=== PATIENT | female | born 1960 | race Caucasian/White ===

== ENCOUNTER 2023-11-21 13:19 | Inpatient (IN) | payer OTHER ==
[~2023-11-21] VITALS: Ht 162.6 cm; Wt 75.0 kg
[2023-11-21 13:32] VITALS: BP 173/86
[2023-11-21] MEDS ORDERED: FAMOTIDINE 50 ML IV ONE (13:45)
[2023-11-21] MEDS ORDERED: MORPHINE Sulfate 2 MG/ML SYR IV ONE ×2 (13:50→16:05)
[2023-11-21] MEDS ORDERED: IOHEXOL 300 MG/ML 100 ML VIAL IV ONE (14:00)
[2023-11-21 14:09] LABS: BASO # 0.1 10*3/uL (0.0-0.1); BASO % 0.3 % (0.0-1.0); EOS # 0.1 10*3/uL (0.0-0.4); EOS % 0.6 % (1.0-4.0); HEMATOCRIT 44.5 % (37.0-47.0); LYMPH # 1.6 10*3/uL (1.3-4.4); LYMPH % 8.9 % (27.0-41.0); MEAN CELL VOLUME 82.6 fl (81.0-99.0); MEAN CORPUSCULAR HGB 26.7 pg (27.0-31.0); MEAN CORPUSCULAR HGB CONC 32.4 g/dl (33.0-37.0); MEAN PLATELET VOLUME 10.2 fl (9.6-12.3); MONO # 1.2 10*3/uL (0.1-1.0); MONO % 6.4 % (3.0-9.0); NEUT % 83.4 % (47.0-73.0); PLATELET COUNT AUTOMATED 313 10*3/uL (130-400); RED BLOOD COUNT 5.39 10*6/uL (4.10-5.10); RED CELL DISTRI WIDTH 14.1 % (0-14.5)
[2023-11-21 14:19] VITALS: BP 119/63
[2023-11-21 14:56] LABS: ALKALINE PHOSPHATASE 116 U/L (46-116); BUN 11 mg/dl (9-23); CHLORIDE 99 mmol/L (98-107); POTASSIUM 2.8 mmol/L (3.4-5.1); SGPT/ALT 40 U/L (5-49); TOTAL PROTEIN 7.2 gm/dL (6.0-8.0)
[2023-11-21 15:06] LABS: LIPASE > 3500 U/L (12-53)
[2023-11-21] MEDS ORDERED: POTASSIUM CHLORIDE 20 MEQ TAB PO ONE (15:15)
[2023-11-21] MEDS ORDERED: MORPHINE Sulfate 2 MG/ML SYR IV PRN (16:35)
[2023-11-21] MEDS ORDERED: Ondansetron Hydrochloride 4 MG/2 ML VIAL IV PRN (16:35)
[2023-11-21] MEDS ORDERED: SODIUM CHLORIDE 0.9% 1,000 ML IV SCH (16:40)
[2023-11-21 17:20] LABS: CHOLESTEROL 230 mg/dL (<200); LDL CHOLESTEROL 140 mg/dL (9-159); TRIGLYCERIDES 78 mg/dl (<150)
[2023-11-21] MEDS ORDERED: POTASSIUM CHLORIDE IN WATER 100 ML IV SCH (18:00)
[2023-11-21] MEDS ORDERED: SODIUM CHLORIDE 0.9% 500 ML IV ONE (18:01)
[2023-11-21 18:11] VITALS: BP 122/77
[2023-11-21] MEDS ORDERED: PROZAC40 M1 PO (18:12)
[2023-11-21] MEDS ORDERED: OMEPRAZOLE40 MG PO (18:12)
[2023-11-21] MEDS ORDERED: LAMICTAL200 MG PO (18:13)
[2023-11-21] MEDS ORDERED: ZESTORETIC 10-1 EACH PO (18:13)
[2023-11-21] MEDS ORDERED: TREMFYA100 MG/11 SQ (18:14)
[2023-11-21] MEDS ORDERED: NORVASC5 MG PO (18:14)
[2023-11-21 19:17] VITALS: BP 138/70
[2023-11-22] VITALS (7 sets, daily range): BP systolic 133–150; BP diastolic 54–78
[2023-11-22 06:44] LABS: BASO % 0.3 % (0.0-1.0); EOS # 0.1 10*3/uL (0.0-0.4); EOS % 0.6 % (1.0-4.0); HEMATOCRIT 44.3 % (37.0-47.0); LYMPH # 0.9 10*3/uL (1.3-4.4); LYMPH % 5.6 % (27.0-41.0); MEAN CELL VOLUME 84.5 fl (81.0-99.0); MEAN CORPUSCULAR HGB 26.9 pg (27.0-31.0); MEAN CORPUSCULAR HGB CONC 31.8 g/dl (33.0-37.0); MEAN PLATELET VOLUME 10.4 fl (9.6-12.3); MONO # 1.1 10*3/uL (0.1-1.0); MONO % 6.8 % (3.0-9.0); NEUT # 13.8 10*3/uL (2.3-7.9); NEUT % 86.4 % (47.0-73.0); PLATELET COUNT AUTOMATED 253 10*3/uL (130-400); RED BLOOD COUNT 5.24 10*6/uL (4.10-5.10); RED CELL DISTRI WIDTH 14.3 % (0-14.5); WHITE BLOOD COUNT 15.9 10*3/uL (4.8-10.8)
[2023-11-22 07:17] LABS: ALKALINE PHOSPHATASE 106 U/L (46-116); BUN 6 mg/dl (9-23); CHLORIDE 100 mmol/L (98-107); FREE T4 1.14 ng/dl (0.89-1.76); SGPT/ALT 51 U/L (5-49); TOTAL PROTEIN 6.8 gm/dL (6.0-8.0)
[2023-11-22 07:18] LABS: POTASSIUM 3.8 mmol/L (3.4-5.1)
[2023-11-22] MEDS ORDERED: Enoxaparin Sodium 40 MG/0.4 ML SYR SC SCH (10:00)
[2023-11-22] MEDS ORDERED: Fluoxetine Hydrochloride 20 MG CAP PO SCH (13:30)
[2023-11-22] MEDS ORDERED: LAMOTRIGINE 100 MG TAB PO SCH (13:30)
[2023-11-22] MEDS ORDERED: amLODIPine besylate 5 MG TAB PO SCH (13:30)
[2023-11-22] MEDS ORDERED: HYDROCHLOROTHIAZIDE 12.5 MG CAP PO SCH (13:30)
[2023-11-22] MEDS ORDERED: LISINOPRIL 10 MG TAB PO SCH (13:30)
[2023-11-22] MEDS ORDERED: SODIUM CHLORIDE 0.9% 1,000 ML IV ONE (13:40)
[2023-11-22 14:35] LABS: LIPASE 1792 U/L (12-53)
[2023-11-23] VITALS: BP 141/70
[2023-11-23] MEDS ORDERED: Ketorolac Tromethamine 30 MG/ML VIAL IV ONE (05:20)
[2023-11-23 05:21] LABS: ALKALINE PHOSPHATASE 207 U/L (46-116); BUN 7 mg/dl (9-23); CHLORIDE 100 mmol/L (98-107); LIPASE 60 U/L (12-53); SGPT/ALT 109 U/L (5-49); TOTAL PROTEIN 6.4 gm/dL (6.0-8.0)
[2023-11-23 06:26] LABS: HEMATOCRIT 41.4 % (37.0-47.0); MEAN CELL VOLUME 85.5 fl (81.0-99.0); MEAN CORPUSCULAR HGB 27.3 pg (27.0-31.0); MEAN CORPUSCULAR HGB CONC 31.9 g/dl (33.0-37.0); MEAN PLATELET VOLUME 11.5 fl (9.6-12.3); PLATELET COUNT AUTOMATED 208 10*3/uL (130-400); RED BLOOD COUNT 4.84 10*6/uL (4.10-5.10); RED CELL DISTRI WIDTH 14.5 % (0-14.5); WHITE BLOOD COUNT 20.2 10*3/uL (4.8-10.8)
[2023-11-23 06:27] LABS: MANUAL DIFF REFLEX YES
[2023-11-23 07:05] LABS: POLYCHROMASIA SLIGHT; TOTAL CELLS COUNTED 100 #CELLS; TOXIC GRANULATION SLIGHT; VACUOLATION OF NEUTROPHILS SLIGHT
[2023-11-23 07:06] LABS: PLATELET SUFFICIENCY NORMAL (NORMAL)
[2023-11-23 08:00] VITALS: BP 136/66
[2023-11-23] MEDS ORDERED: amLODIPine besylate 5 MG TAB PO SCH (10:00)
[2023-11-23] MEDS ORDERED: Fluoxetine Hydrochloride 20 MG CAP PO SCH (10:00)
[2023-11-23] MEDS ORDERED: LAMOTRIGINE 100 MG TAB PO SCH (10:00)
[2023-11-23] MEDS ORDERED: ERGOCALCIFEROL 50,000 IU CAP (1.25 MG) PO SCH (10:00)
[2023-11-23] MEDS ORDERED: Piperacillin Sodium/Tazobact 50 ML IV SCH (10:00)
[2023-11-23] MEDS ORDERED: HYDROCHLOROTHIAZIDE 12.5 MG CAP PO SCH (10:00)
[2023-11-23] MEDS ORDERED: LISINOPRIL 10 MG TAB PO SCH (10:00)
[2023-11-23] MEDS ORDERED: SODIUM CHLORIDE 0.9% 1,000 ML IV ONE (10:45)
[2023-11-23] MEDS ORDERED: POTASSIUM CHLORIDE IN WATER 100 ML IV SCH (11:00)
[2023-11-23] MEDS ORDERED: DEXTROSE 5% SALINE 0.45% 1,000 ML IV SCH (11:45)
[2023-11-23 12:00] VITALS: BP 116/52
[2023-11-23 16:00] VITALS: BP 134/65
[2023-11-23 20:00] VITALS: BP 157/73
[2023-11-23 23:50] LABS: ABG BASE EXCESS 3.3 mmol/L (-2.0-2.0); ARTERIAL BLOOD GAS PH 7.44 (7.35-7.45)
[2023-11-24] VITALS: BP 159/69
[2023-11-24] MEDS ORDERED: Ketorolac Tromethamine 15 MG/ML VIAL IV ONE (01:15)
[2023-11-24] MEDS ORDERED: FUROSEMIDE 20 MG/2 ML VIAL IV ONE (03:25)
[2023-11-24 06:11] LABS: BASO % 0.3 % (0.0-1.0); EOS % 0.4 % (1.0-4.0); HEMATOCRIT 40.1 % (37.0-47.0); LYMPH # 0.5 10*3/uL (1.3-4.4); LYMPH % 4.8 % (27.0-41.0); MEAN CELL VOLUME 83.9 fl (81.0-99.0); MEAN CORPUSCULAR HGB 27.6 pg (27.0-31.0); MEAN CORPUSCULAR HGB CONC 32.9 g/dl (33.0-37.0); MEAN PLATELET VOLUME 11.4 fl (9.6-12.3); MONO % 10.1 % (3.0-9.0); NEUT # 7.9 10*3/uL (2.3-7.9); NEUT % 83.9 % (47.0-73.0); PLATELET COUNT AUTOMATED 193 10*3/uL (130-400); RED BLOOD COUNT 4.78 10*6/uL (4.10-5.10); RED CELL DISTRI WIDTH 14.4 % (0-14.5); WHITE BLOOD COUNT 9.5 10*3/uL (4.8-10.8)
[2023-11-24 07:03] LABS: ALKALINE PHOSPHATASE 261 U/L (46-116); CHLORIDE 94 mmol/L (98-107); LIPASE 61 U/L (12-53); POTASSIUM 2.6 mmol/L (3.4-5.1); SGPT/ALT 109 U/L (5-49); TOTAL PROTEIN 6.8 gm/dL (6.0-8.0)
[2023-11-24 07:05] LABS: BUN < 5 mg/dl (9-23)
[2023-11-24] MEDS ORDERED: POTASSIUM CHLORIDE IN WATER 100 ML IV SCH (07:10)
[2023-11-24 08:00] VITALS: BP 146/67
[2023-11-24] MEDS ORDERED: HEPARIN SODIUM 5,000 UNIT/ML VIAL SC SCH (10:00)
[2023-11-24] MEDS ORDERED: Ketorolac Tromethamine 15 MG/ML VIAL IV PRN (11:10)
[2023-11-24] MEDS ORDERED: Ketorolac Tromethamine 30 MG/ML VIAL IV ONE (11:10)
[2023-11-24 12:00] VITALS: BP 151/75
[2023-11-24] MEDS ORDERED: POTASSIUM CHLORIDE 20 MEQ TAB PO ONE (14:40)
[2023-11-24 16:00] VITALS: BP 156/75
[2023-11-24 20:00] VITALS: BP 151/69
[2023-11-24] MEDS ORDERED: Piperacillin Sodium/Tazobact 50 ML IV SCH (20:00)
[2023-11-25] VITALS: BP 152/86
[2023-11-25 06:13] LABS: BASO % 0.5 % (0.0-1.0); EOS # 0.1 10*3/uL (0.0-0.4); EOS % 1.1 % (1.0-4.0); HEMATOCRIT 41.1 % (37.0-47.0); LYMPH # 0.6 10*3/uL (1.3-4.4); LYMPH % 9.1 % (27.0-41.0); MEAN CELL VOLUME 83.7 fl (81.0-99.0); MEAN CORPUSCULAR HGB 26.7 pg (27.0-31.0); MEAN CORPUSCULAR HGB CONC 31.9 g/dl (33.0-37.0); MEAN PLATELET VOLUME 11.9 fl (9.6-12.3); MONO # 0.9 10*3/uL (0.1-1.0); NEUT % 75.8 % (47.0-73.0); PLATELET COUNT AUTOMATED 198 10*3/uL (130-400); RED BLOOD COUNT 4.91 10*6/uL (4.10-5.10); RED CELL DISTRI WIDTH 14.3 % (0-14.5); WHITE BLOOD COUNT 6.6 10*3/uL (4.8-10.8)
[2023-11-25 06:29] LABS: ALKALINE PHOSPHATASE 304 U/L (46-116); BUN 9 mg/dl (9-23); CHLORIDE 96 mmol/L (98-107); POTASSIUM 3.1 mmol/L (3.4-5.1); SGPT/ALT 125 U/L (5-49); TOTAL PROTEIN 6.8 gm/dL (6.0-8.0)
[2023-11-25] MEDS ORDERED: POTASSIUM CHLORIDE 20 MEQ TAB PO ONE (07:25)
[2023-11-25 08:00] VITALS: BP 151/75
[2023-11-25] MEDS ORDERED: VITAMIN D3125 MCG PO (11:40)
[2023-11-25] MEDS ORDERED: AMOX-CLAV 875-1 EACH PO (11:40)
[2023-11-25] MEDS ORDERED: HYDROCODONE-AC1 EAC1 PO (11:41)
[2023-11-25 12:00] VITALS: BP 129/59
== END 2023-11-25 13:37 | disposition home or self-care (01) | DRG 439 ==
LOC: ED 13:19 → 5E 16:26 → EDHOLD 16:26 → 5E 11-22 14:31
PROVIDERS: Internal Medicine; Physician Assistant Medical; Student in an Organized Health Care Education/Training Program; ADMIT Family Medicine; ATTEND Family Medicine
DX: K85.90 Acute pancreatitis without necrosis or infection, unspecified (principal); E87.1 Hypo-osmolality and hyponatremia; K80.00 Calculus of gallbladder with acute cholecystitis without obstruction; F32.A Depression, unspecified; E78.5 Hyperlipidemia, unspecified; I10 Essential (primary) hypertension; E55.9 Vitamin D deficiency, unspecified; K21.9 Gastro-esophageal reflux disease without esophagitis; F41.9 Anxiety disorder, unspecified; E87.6 Hypokalemia; E80.7 Disorder of bilirubin metabolism, unspecified; Z98.891 History of uterine scar from previous surgery; Z82.49 Family history of ischemic heart disease and other diseases of the circulatory system; Z88.8 Allergy status to other drugs, medicaments and biological substances; Z79.899 Other long term (current) drug therapy